=== PATIENT | female | born 1965 | race Caucasian/White ===

== ENCOUNTER 2023-06-14 21:27 | Emergency (ER) | payer OTHER ==
[~2023-06-14] VITALS: Ht 170.2 cm; Wt 98.0 kg
[~2023-06-14 21:27] MED LIST: ALORA1 EAC1 TD; NORCO 5-325 TA1 EACH PO; ZOLOFT50 MG PO
[2023-06-14 23:00] VITALS: BP 112/77
== END 2023-06-14 23:02 | disposition home or self-care (01) ==
LOC: ED 21:27
DX: R04.0 Epistaxis (principal); Z79.899 Other long term (current) drug therapy
CPT/HCPCS: A9270